=== PATIENT | male | born 1960 | race Caucasian/White ===

== ENCOUNTER 2018-12-25 06:00 | Day surgery (SDC) | payer BC ==
[~2018-12-25] VITALS: Ht 154.9 cm; Wt 74.5 kg
[2018-12-25] MEDS ORDERED: LIDOCAINE 2% 5 ML JELLY TP ONE (06:01)
[2018-12-25] MEDS ORDERED: ALBUTEROL SULFATE 2.5 MG/0.5 ML NEB SOLUTION NEB ONE (06:01)
[2018-12-25] MEDS ORDERED: BENZOCAINE 20% 50 MCG/SPRAY 57 GM TP ONE (06:01)
[2018-12-25] MEDS ORDERED: SODIUM CHLORIDE 0.9% 1,000 ML IV ONE ×2 (06:29→07:00)
[2018-12-25] MEDS ORDERED: BECL10.62 IH (07:28)
[2018-12-25] MEDS ORDERED: ASPI81 PO (07:28)
[2018-12-25] MEDS ORDERED: PRED10 PO (07:28)
[2018-12-25] MEDS ORDERED: MONT10TA21 PO (07:28)
[2018-12-25] MEDS ORDERED: SIMV-259 PO (07:28)
[2018-12-25] MEDS ORDERED: METO25 PO (07:28)
[2018-12-25] MEDS ORDERED: PANT40TA25 PO (07:28)
[2018-12-25] MEDS ORDERED: ALBU8.5H8 IH (07:28)
[2018-12-25] MEDS ORDERED: FentaNYL CITRATE-PF 100 MCG/2 ML VIAL ONE (07:40)
[2018-12-25] MEDS ORDERED: MIDAZOLAM HCL 2 MG/2 ML VIAL ONE (07:40)
[2018-12-25] MEDS ORDERED: MethylPREDNISolone SOD SUCC 125 MG/2 ML VIAL IVP ONE (08:30)
[2018-12-25] MEDS ORDERED: OXYGEN THERAPY IH SCH (20:00)
== END 2018-12-25 10:30 | disposition home or self-care (01) ==
LOC: SURGERY 06:00
PROVIDERS: ATTEND Internal Medicine Critical Care Medicine
DX: J38.4 Edema of larynx (principal); B37.0 Candidal stomatitis; E78.00 Pure hypercholesterolemia, unspecified; F17.210 Nicotine dependence, cigarettes, uncomplicated; Z90.49 Acquired absence of other specified parts of digestive tract; Z79.01 Long term (current) use of anticoagulants; Z95.0 Presence of cardiac pacemaker
CPT/HCPCS: 31623; 31624; 71045; 87015; 87070; 87101; 87205; 87206; 87220; 88108; 88312; 93005; J2250; J2930; J3010; J7030